=== PATIENT | male | born 2000 | race Caucasian/White ===

== ENCOUNTER 2021-05-23 16:58 | Emergency (ER) | payer OTHER ==
[~2021-05-23] VITALS: Ht 180.3 cm; Wt 58.1 kg
[2021-05-23] MEDS ORDERED: HYDROMORPHONE 1 MG/1 ML DISP.SYRIN IM ONE (17:30)
[2021-05-23] MEDS ORDERED: HYDROMORPHONE 1 MG/1 ML DISP.SYRIN ONE (17:31)
--- NOTE | 2021-05-23 17:38 | NUR ---
BIB FAMILY FOR WORSENING BODY PAIN. AGITATED [employer]. PT AAOX3, VSS. RR EVEN & UNLABORED. DENIES CP, SOB, DIZZINESS, N/V AT THIS TIME. PT SEEN & EVAL'D BY DR. TOVAR. MEDICATED ORDERED, PT LINH WELL. WILL CONT TO MONITOR.
--- NOTE | 2021-05-23 18:10 | NUR ---
CALLED [employer] FOR POLICE REPORT. WILL SEND A UNIT OUT.
--- NOTE | 2021-05-23 18:35 | NUR ---
JOHN OFFICERS AT FOR EVAL.
--- NOTE | 2021-05-23 19:04 | NUR ---
KIM ( MOTHER) [phone] STEFAN (FATHER) [phone]
[2021-05-23 19:15] LABS: HEMATOCRIT 46 % (39-51); HEMOGLOBIN 15.2 g/dL (13.5-17.5); RED BLOOD CELL COUNT(AUTO) 4.86 MIL/uL (4.5-6.0); WHITE BLOOD COUNT (AUTO) 16.6 K/uL (4.3-11.0)
[2021-05-23 19:18] LABS: BASOPHILS % (AUTO) 0.3 % (0.0-2.0); EOSINOPHILS % (AUTO) 0.1 % (0.0-6.0); LYMPHOCYTES # (AUTO) 1.7 K/uL (0.8-4.8); LYMPHOCYTES % (AUTO) 10.2 % (20.0-44.0); MEAN CORPUSCULAR HGB CONC 33 g/dl (31.0-36.0); MEAN CORPUSCULAR VOLUME 94 fL (80-96); MONOCYTES # (AUTO) 1.1 K/uL (0.1-1.30); MONOCYTES % (AUTO) 6.4 % (2.0-12.0); NEUTROPHILS # (AUTO) 13.8 K/uL (1.8-8.9); PLATELET COUNT (AUTO) 239 K/uL (150-450)
[2021-05-23 19:22] LABS: CALCIUM, SERUM 9.2 mg/dL (8.5-10.1); CARBON DIOXIDE 24 mmol/L (21-32); CHLORIDE 103 mmol/L (98-107); CREATININE 0.8 mg/dL (0.6-1.3); GLUCOSE 150 mg/dL (74-106); POTASSIUM 3.4 mmol/L (3.5-5.1); SODIUM SERUM 141 mmol/L (136-145); UREA NITROGEN, BLOOD 8 mg/dL (7-18)
[2021-05-23 19:27] LABS: ALANINE AMINOTRANSFERASE 20 U/L (12-78); ALBUMIN 4.7 g/dL (3.4-5.0); ALCOHOL, BLOOD < 3 mg/dL (0-0); ALKALINE PHOSPHATASE 79 U/L (46-116); ASPARTATE AMINOTRANSFERASE 19 U/L (15-37); BILIRUBIN,DIRECT 0.2 mg/dL (0.0-0.2); BILIRUBIN,TOTAL 0.5 mg/dL (0.2-1.0); TOTAL PROTEIN, SERUM 7.9 g/dL (6.4-8.2)
[2021-05-23] MEDS ORDERED: OLANZAPINE 10 MG VIAL IM ONE ×2 (19:29→19:30)
[2021-05-23 19:30] LABS: ACETAMINOPHEN < 2 ug/ml (10-30)
--- NOTE | 2021-05-23 19:48 | NUR ---
PT PLACED ON HOLD BY [employer] OFFICERS, ERMD AWARE. MEDICATED ORDERED, PT LINH WELL.
[2021-05-23 21:08] LABS: BILIRUBIN,URINE Negative (NEGATIVE); COLOR,URINE YELLOW (YELLOW); LEUKOCYTE ESTERASE ,URINE Negative (NEGATIVE); NITRITE, URINE Negative (NEGATIVE); PH,URINE 6.5 (5.0-8.0); PROTEIN,URINE Negative (NEGATIVE); UGLUCOSE Negative (NEGATIVE); UROBILINOGEN,URINE 0.2 EU/dL (0.2)
--- NOTE | 2021-05-23 21:43 | NUR ---
Patient is resting comfortably in bed with eyes closed. Easily aroused. VSS. SITTER AT BS & WILL CONT TO MONITOR.
[2021-05-23 21:44] LABS: BACTERIA,URINE Rare /HPF (None Seen); RBC,URINE NONE SEEN /HPF (0-2); SQUAMOUS EPITHELIAL CELL,UR Few /HPF (None Seen); WBC,URINE NONE SEEN /HPF (0-3)
--- NOTE | 2021-05-23 23:39 | NUR ---
PT SCREAMING, RESTLESS, UNCOOPERATIVE, DEMANDING FOR PAIN MEDS. PT VERBALLY ABUSIVE TO ER STAFF. ER MD MADE AWARE.
[2021-05-23] MEDS ORDERED: HALOPERIDOL LACTATE INJ 5 MG/ML VIAL ONE (23:49)
--- NOTE | 2021-05-23 23:59 | NUR ---
URMILA GAUTHIERW PAGED FOR PSYCH EVAL.
[2021-05-24] MEDS ORDERED: HALOPERIDOL LACTATE INJ 5 MG/ML VIAL IM ONE
--- NOTE | 2021-05-24 00:42 | NUR ---
URMILA GAUTHIERW AT BEDSIDE TO CARMELA RUIZ.
[2021-05-24] MEDS ORDERED: LORAZEPAM INJ 2 MG/ML VIAL ONE (01:41)
--- NOTE | 2021-05-24 01:43 | NUR ---
PT REMAINS VERY AGITATED, RESTLESS, UNCOOPERATIVE. ER MD MADE AWARE WITH ORDERS RECEIVED. WILL CARRY OUT ORDERS.
[2021-05-24] MEDS ORDERED: LORAZEPAM INJ 2 MG/ML VIAL IM ONE (02:00)
--- NOTE | 2021-05-24 02:36 | NUR ---
PT ASLEEP, NO ACUTE DISTRESS NOTED, RESP EVEN AND UNLABORED. PT ON CARDIAC MONITORING, CONTINUOUS POX. CALL LIGHT WITHIN REACH. WILL CONTINUE TO MONITOR PT CLOSELY. 1:1 SITTER REMAINS AT BEDSIDE.
--- NOTE | 2021-05-24 06:12 | NUR ---
REMAINS IN BED, VSS. ASLEEP.
--- NOTE | 2021-05-24 07:56 | NUR ---
THE PATIENT IN BED. SLEEPING. RESPIRATION REGULAR AND UNLABORED. WILL CONTINUE TO MONITOR THE PATIENT.
--- NOTE | 2021-05-24 13:17 | NUR ---
DAV ([facility]) [phone].
--- NOTE | 2021-05-24 15:17 | NUR ---
CALLED ART FOR CRISIS EVAL.
[2021-05-24] MEDS ORDERED: HYDR-3972 PO (16:50)
[2021-05-24] MEDS ORDERED: HALO5TAB8 GT (16:50)
--- NOTE | 2021-05-24 19:20 | NUR ---
Patient discharged to home in stable condition. Written and verbal after care instructions given. The patient and the mother verbalize understanding of instruction.
[2021-05-24 19:21] VITALS: BP 115/64
[2021-05-25] MEDS ORDERED: HYDR-4209 PO (21:41)
== END 2021-05-24 19:21 | disposition home or self-care (01) ==
LOC: ER 17:29
DX: F23 Brief psychotic disorder (principal); G89.29 Other chronic pain; Q87.40 Marfan syndrome, unspecified; M79.7 Fibromyalgia; Z20.822 Contact with and (suspected) exposure to COVID-19
CPT/HCPCS: 36415; 80048; 80076; 80143; 80307; 80320; 81001; 85025; 87426; 96372 ×2; 99285; C9803; J1170; J1630; J2060; J3490; G0480